=== PATIENT | female | born 1960 | race Caucasian/White ===

== ENCOUNTER 2019-01-02 12:59 | Emergency (ER) | payer OTHER ==
[2019-01-02 13:19] VITALS: RESP 18; TEMP 98.1
[2019-01-02] MEDS ORDERED: KETOROLAC 60 MG/2 ML VIAL IM STA (14:21)
--- NOTE | 2019-01-02 14:22 | ED ---
General Adult HPI - General Chief complaint: Back Pain/Injury Stated complaint: low back pain Time Seen by Provider: 01/02/19 13:54 Source: patient, RN notes reviewed, old records reviewed Mode of arrival: wheelchair Limitations: no limitations - History of Present Illness Initial comments: 58-year-old female patient with past history of right knee osteoarthritis, left shoulder osteoarthritis presents to ED with approximately 1 month of lumbar back pain. Patient denies any falls or trauma. Patient reports that her back pain has been increasing worse in the process 2 days, has had difficulty sleeping tonight. Patient reports that the pain is located in her midline lumbar spine. Patient denies any fever/chills, nausea vomiting diarrhea, loss of bowel or bladder control, new onset lower extremity weakness, paresthesia. Patient denies any other complaints today. Patient denies any chest pain shortness of breath abdominal pain. Patient did express to myself and to the nurse that she has had some fleeting thoughts of suicide due to life stressors caused by musculoskeletal issues. Patient denies any plan to hurt herself or hurt anybody else. Systemic: Pt denies fatigue, fever/chills, rash. Pt denies weakness, night sweats, weight loss. Neuro: Pt denies headache, visual disturbances, syncope or pre-syncope. HEENT: Pt denies ocular discharge or irritation, otalgia, rhinorrhea, pharyngitis or notable lymphadenopathy. Cardiopulmonary: Pt denies chest pain, SOB, heart palpitations, dyspnea on exertion. Abdominal/GI: Pt denies abdominal pain, n/v/d. : Pt denies dysuria, burning w/ urination, frequency/urgency. Denies new onset urinary or bowel incontinence. MSK: Pt denies loss of strength or function in extremities. Neuro: Pt denies new onset weakness, paresthesias. - Related Data Previous Rx's Medication Instructions Recorded Cyclobenzaprine [Flexeril] 10 mg PO TID #20 tab 01/02/19 predniSONE 20 mg PO DAILY 5 Days #5 tab 01/02/19 Allergies Allergy/AdvReac Type Severity Reaction Status Date / Time No Known Allergies Allergy Verified 01/02/19 14:40 Review of Systems ROS Statement: Those systems with pertinent positive or pertinent negative responses have been documented in the HPI. ROS Other: All systems not noted in ROS Statement are negative. Past Medical History Past Medical History: No Reported History History of Any Multi-Drug Resistant Organisms: None Reported Past Surgical History: No Surgical Hx Reported Past Psychological History: Anxiety Smoking Status: Never smoker Past Alcohol Use History: None Reported General Exam - General Exam Comments Initial Comments: Constitutional: NAD, AOX3, Pt has pleasant affect. HEENT: NC/AT, trachea midline, neck supple, no lymphadenopathy. Posterior pharynx non erythematous, without exudates. External ears appear normal, without discharge. Mucous membranes moist. Eyes PERRLA, EOM intact. There is no scleral icterus. No pallor noted. Cardiopulmonary: RRR, no murmurs, rubs or gallops, no JVD noted. Lungs CTAB in anterior and posterior marquez. No peripheral edema. Abdominal exam: Abdomen soft and non-distended. Abdomen non-tender to palpation in all 4 quadrants. Bowel sounds active in LLQ. No hepatosplenomegaly. No ecchymosis Neuro: CN II-XII grossly intact. No nuchal rigidity. MSK: No cervical, thoracic tenderness. Midline lumbar spinal tenderness. 5/5 strength psoas and quadriceps. Pt ambulatory, heelt to toe walking intact. No posterior calf tenderness bilaterally, homans sign negative bilaterally. Posterior tibialis and radial pulse +2 bilaterally. Sensation intact in upper and lower extremities. Full active ROM in upper and lower extremities, 5/5 stregnth. Limitations: no limitations Course Vital Signs 01/02/19 01/02/19 13:06 15:40 Temperature 98.1 F Pulse Rate 97 100 Respiratory 18 18 Rate Blood Pressure 181/86 147/82 O2 Sat by Pulse 98 98 Oximetry Medical Decision Making - Medical Decision Making 58-year-old female patient with past history of right knee osteoarthritis, left shoulder osteoarthritis presents to ED with approximately 1 month of lumbar back pain. Patient denies any falls or trauma. Patient reports that her back pain has been increasing worse in the process 2 days, has had difficulty sleeping tonight. Patient did express to myself and to the nurse that she has had some fleeting thoughts of suicide due to life stressors caused by musculoskeletal issues. Patient denies any plan to hurt herself or hurt anybody else. Pt VSS, afebrile. Physical exam displayed: No cervical, thoracic tenderness. Midline lumbar spinal tenderness. 5/5 strength psoas and quadriceps. Pt ambulatory, heelt to toe walking intact. CT lumbar spine displayed no evidence of acute fracture midline of lumbar spine. Mild multilevel degenerative disc disease. Findings were explained patient length. Patient describes the 5 days of steroids, muscle relaxers. Patient to follow- up with orthopedics outpatient. Patient to follow up with PCP in 1-2 days. Patient additionally evaluated by EPS nurse Worthington. Was cleared for discharge and outpatient follow-up. At discharge patient denied any thoughts of suicide, hurting herself or anybody else. case discussed in depth with Dr. Infante. Disposition Clinical Impression: Back pain Disposition: HOME SELF-CARE Condition: Serious Instructions (If sedation given, give patient instructions): Acute Low Back Pain (ED) Additional Instructions: Patient to adhere to previously discussed treatment plan and will take medication(s) as directed. Patient to follow up with PCP in 1-2 days. Patient to return to ED if symptoms do not improve. Prescriptions: Cyclobenzaprine [Flexeril] 10 mg PO TID #20 tab predniSONE 20 mg PO DAILY 5 Days #5 tab Is patient prescribed a controlled substance at d/c from ED?: No Referrals: Landy Castillo NPC [Primary Care Provider] - 1-2 days Malcolm Pepper MD [STAFF PHYSICIAN] - 1-2 days
--- NOTE | 2019-01-02 15:04 | CT ---
EXAMINATION TYPE: CT lumbar spine wo con DATE OF EXAM: 01/02/2019 2:57 PM COMPARISON: None HISTORY: Low back pain without injury CT DLP: 540 mGycm Automated exposure control for dose reduction was used. TECHNIQUE: Unenhanced CT of the lumbar spine was performed. Bone and soft tissue window settings are submitted as well as coronal and sagittal reconstructions. FINDINGS: There is no evidence of compression deformity or malalignment of the lumbar spine. No acute fracture is seen. Mild multilevel degenerative disc disease of the lumbar spine is seen as vasculiti s disease is present at L3-L4 and small marginal osteophytes are seen from L2 through S1. Multilevel facet arthropathy is also present. Evaluation of the spinal canal is limited. There is a too small to accurately characterize hepatic lesion with the attenuation of a simple cyst. Left renal cyst is also incidentally seen. L1-L2: Normal disc space height. No disc herniation protrusion or central stenosis. No facet joint arthropathy. No evidence for foraminal encroachment. L2-L3: There is a broad-based disc bulge resulting in mild bilateral neural foraminal narrowing. No g ross evidence of spinal canal stenosis. L3-L4: There is a broad-based disc bulge and facet arthropathy resulting in mild bilateral neural for aminal narrowing. No gross evidence of spinal canal stenosis. L4-L5: There is a right paracentral broad-based disc bulge and facet arthropathy. No gross evidence o f spinal canal stenosis. L5-S1: There is a small broad-based disc bulge with calcification posteriorly. No significant neural foraminal narrowing or spinal canal stenosis. IMPRESSION: 1. No evidence of acute fracture or malalignment of the lumbar spine. 2. Mild multilevel degenerative disc disease as described above.
[2019-01-02 15:41] VITALS: BP 147/82; PULSE 100
== END 2019-01-02 17:14 | disposition home or self-care (01) ==
LOC: EC 12:59
DX: M54.5 Low back pain (principal); M51.36 Other intervertebral disc degeneration, lumbar region; R45.851 Suicidal ideations; Z87.39 Personal history of other diseases of the musculoskeletal system and connective tissue
CPT/HCPCS: 99284; 96372; 72131; J1885

== ENCOUNTER 2024-12-12 07:00 | Emergency (ER) | payer MEDICARE ==
--- NOTE | 2024-12-12 08:00 | XR ---
EXAMINATION TYPE: XR knee complete RT DATE OF EXAM: 12/12/2024 7:53 AM COMPARISON: None CLINICAL INDICATION: Female, 64 years old with history of pain; PHH, pain TECHNIQUE: XR knee complete RT 3 views submitted. FINDINGS: Status post total knee arthroplasty changes with hardware in appropriate alignment and in tact. No evidence of fracture. IMPRESSION: Status post total knee arthroplasty changes with hardware intact and appropriate alignment. No fractu res identified. IMPRESSION: 1. No acute osseous pathology. 2. Knee arthroplasty changes appear intact. [facility], , 12/12/2024 7:58 AM
--- NOTE | 2024-12-12 08:02 | ED ---
Lower Extremity Injury HPI - General Chief Complaint: Extremity Injury, Lower Stated Complaint: R Knee Pain Time Seen by Provider: 12/12/24 07:11 Source: patient, family, RN notes reviewed Mode of arrival: wheelchair Limitations: physical limitation - History of Present Illness Initial Comments: 64-year-old female presents emergency department complaint of right knee pain. Patient states that she has had some on and off issues of her knee since her replacement 5 years ago. Patient is currently followed by Dr. Bell in which they have recommended revision. Patient states Wednesday she was shopping states that she twisted her knee and she has had increasing excruciating pain of her medial knee. She states she is barely able to put any weight on her knee. Patient states this is unusual for her where she states that she did primarily walk, up to a mile without issues but states that she is unable to perform his activities now. She denies any paresthesias. Patient denies any other associated symptoms. - Related Data Previous Rx's Medication Instructions Recorded Cyclobenzaprine [Flexeril] 10 mg PO TID #20 tab 01/02/19 predniSONE [Deltasone] 20 mg PO DAILY 5 Days #5 tab 01/02/19 traMADol HCl [Ultram] 50 mg PO Q6H PRN #12 tab 12/12/24 Allergies Allergy/AdvReac Type Severity Reaction Status Date / Time No Known Allergies Allergy Verified 01/02/19 14:40 Review of Systems ROS Statement: Those systems with pertinent positive or pertinent negative responses have been documented in the HPI. ROS Other: All systems not noted in ROS Statement are negative. Past Medical History Past Medical History: No Reported History History of Any Multi-Drug Resistant Organisms: None Reported Past Surgical History: No Surgical Hx Reported Past Psychological History: Anxiety Smoking Status: Never smoker Past Alcohol Use History: None Reported General Exam Limitations: physical limitation General appearance: alert, in no apparent distress Head exam: Present: atraumatic, normocephalic, normal inspection Respiratory exam: Present: normal lung sounds bilaterally. Absent: respiratory distress, wheezes, rales, rhonchi, stridor Cardiovascular Exam: Present: regular rate, normal rhythm, normal heart sounds. Absent: systolic murmur, diastolic murmur, rubs, gallop, clicks Extremities exam: Present: other (Right knee there is mild swelling noted there is increasing warmth without erythema pedal pulses weak bilaterally there is medial knee tenderness) Neurological exam: Present: alert Skin exam: Present: warm, dry, intact, normal color. Absent: rash Course Vital Signs 12/12/24 12/12/24 07:09 08:48 Temperature 98.4 F 98 F Pulse Rate 89 84 Respiratory 18 16 Rate Blood Pressure 131/70 145/80 O2 Sat by Pulse 99 97 Oximetry Medical Decision Making - Medical Decision Making Was pt. sent in by a medical professional or institution (, [facility], SOLUTION DESIGN ENGINEER, urgent care, hospital, or fpc...) When possible be specific @ -No Did you speak to anyone other than the patient for history (EMS, parent, family, police, friend...)? What history was obtained from this source @ -No Did you review nursing and triage notes (agree or disagree)? Why? @ -I reviewed and agree with nursing and triage notes Were old charts reviewed (outside hosp., previous admission, EMS record, old EKG, old radiological studies, urgent care reports/EKG's, fpc records)? Report findings @ -No old charts were reviewed Differential Diagnosis (chest pain, altered mental status, abdominal pain women, abdominal pain men, vaginal bleeding, weakness, fever, dyspnea, syncope, headache, dizziness, GI bleed, back pain, seizure, CVA, palpatations, mental health, musculoskeletal)? @ -periprostatic fracture, knee sprain, leg pain EKG interpreted by me (3pts min.). @ -None X-rays interpreted by me (1pt min.). @ -X-ray knee right no acute fracture or malalignment CT interpreted by me (1pt min.). @ -None done U/S interpreted by me (1pt. min.). @ -None done What testing was considered but not performed or refused? (CT, X-rays, U/S, labs)? Why? @ -None What meds were considered but not given or refused? Why? @ -None Did you discuss the management of the patient with other professionals (professionals i.e. [facility] F[facility], SOLUTION DESIGN ENGINEER, lab, RT, psych nurse, public health social worker, stores assistant, teacher, probation officer, case aide)? Give summary @ -Patient's orthopedic surgeon Dr. bell for follow-up Was smoking cessation discussed for >3mins.? @ -No Was critical care preformed (if so, how long)? @ -No Were there social determinants of health that impacted care today? How? (Homelessness, low income, unemployed, alcoholism, drug addiction, transportation, low edu. Level, literacy, decrease access to med. care, [facility], rehab)? @ -No Was there de-escalation of care discussed even if they declined (Discuss DNR or withdrawal of care, Hospice)? DNR status @ -No What co-morbidities impacted this encounter? (DM, HTN, Smoking, COPD, CAD, Cancer, CVA, ARF, Chemo, Hep., AIDS, mental health diagnosis, sleep apnea, morbid obesity)? @ -None Was patient admitted / discharged? Hospital course, mention meds given and route, prescriptions, significant lab abnormalities, going to OR and other pertinent info. @ -Discharge patient has follow-up on with Dr. bell patient provided analgesics return parameters santy. Undiagnosed new problem with uncertain prognosis? @ -No Drug Therapy requiring intensive monitoring for toxicity (Heparin, Nitro, Insulin, Cardizem)? @ -No Were any procedures done? @ -No Diagnosis/symptom? @ -Knee pain Acute, or Chronic, or Acute on Chronic? @ -Acute Uncomplicated (without systemic symptoms) or Complicated (systemic symptoms)? @ -Uncomplicated Side effects of treatment? @ -No Exacerbation, Progression, or Severe Exacerbation? @ -No Poses a threat to life or bodily function? How? (Chest pain, [place], AR, pneumonia, PE, COPD, DKA, ARF, appy, cholecystitis, CVA, Diverticulitis, Homicidal, Suicidal, threat to staff... and all critical care pts) @ -No Disposition Clinical Impression: Right knee pain Disposition: HOME SELF-CARE Condition: Stable Instructions (If sedation given, give patient instructions): Knee Pain (ED) Additional Instructions: Please contact Dr. Bell office for appointment on . Please return to the Emergency Department if symptoms worsen or any other concerns. Prescriptions: traMADol HCl [Ultram] 50 mg PO Q6H PRN #12 tab PRN Reason: Pain Is patient prescribed a controlled substance at d/c from ED?: Yes When asked, does pt state using other controlled substances?: No If prescribed controlled substance>3 days was MAPS reviewed?: Prescribed <3 Days If opioid is for acute pain is fill amount 7 days or less?: Yes If Rx opioid, was Start Talking consent form obtained?: Yes Referrals: Aly Bosch MD [Primary Care Provider] - 1-2 days Tolu Bell MD [Medical Doctor] - 1-2 days Time of Disposition: 08:48
[2024-12-12 08:49] VITALS: BP 145/80; PULSE 84; RESP 16; TEMP 98
[2024-12-12] MEDS: traMADol 50 MG STARTER PACK 3 TAB BTL PO STA (08:54)
== END 2024-12-12 09:00 | disposition home or self-care (01) ==
LOC: EC 07:00
DX: M25.562 Pain in left knee (principal); Z96.651 Presence of right artificial knee joint; X50.1XXA Overexertion from prolonged static or awkward postures, initial encounter
CPT/HCPCS: 99283

== ENCOUNTER 2024-12-17 13:19 | Inpatient (IN) | payer MEDICARE ==
[2024-12-17] MEDS ORDERED: IOPAMIDOL CONTRAST (ORAL USE) VIAL PO PRN (13:40)
[2024-12-17 14:02] LABS: Basophils # (A) 0.1 k/uL (0-0.2); Basophils % (A) 0 %; Eosinophils # (A) 0.1 k/uL (0-0.7); Eosinophils % (A) 1 %; HCT 40.6 % (34.0-46.0); HGB 13.3 gm/dL (11.4-16.0); Lymphocytes # (A) 1.3 k/uL (1.0-4.8); Lymphocytes % (A) 8 %; MCH 27.9 pg (25.0-35.0); MCHC 32.7 g/dL (31.0-37.0); MCV 85.5 fL (80.0-100.0); Mean Platelet Volume 7.5; Monocytes # (A) 0.7 k/uL (0-1.0); Monocytes % (A) 4 %; Neutrophils # (A) 14.2 k/uL (1.3-7.7); Neutrophils % (A) 86 %; Platelet Count 517 k/uL (150-450); RBC 4.75 m/uL (3.80-5.40); RDW 13.2 % (11.5-15.5); WBC 16.5 k/uL (3.8-10.6)
[2024-12-17] MEDS: SODIUM CHLORIDE 0.9% 1,000 ML IV STA (14:06)
[2024-12-17 14:14] LABS: ALT 13 U/L (4-34); AST 29 U/L (14-36); African American GFR (CKD) >90 (>60 ml/min/1.73 sqM); Albumin 3.9 g/dL (3.5-5.0); Alkaline Phosphatase 90 U/L (38-126); Anion Gap 10 mmol/L; Blood Urea Nitrogen 18 mg/dL (7-17); Calcium 9.7 mg/dL (8.4-10.2); Carbon Dioxide 26 mmol/L (22-30); Chloride 102 mmol/L (98-107); Glucose 116 mg/dL (74-99); Lipase 85 U/L (23-300); Non-African American GFR(CKD) >90 (>60 ml/min/1.73 sqM); Potassium 4.7 mmol/L (3.5-5.1); Sodium 138 mmol/L (137-145); Total Bilirubin 0.5 mg/dL (0.2-1.3); Total Protein 6.9 g/dL (6.3-8.2)
--- NOTE | 2024-12-17 16:19 | ED ---
Abdominal Pain HPI - General Chief Complaint: Abdominal Pain Stated Complaint: bowel blockage Time Seen by Provider: 12/17/24 13:23 Source: patient Mode of arrival: ambulatory Limitations: no limitations - History of Present Illness Initial Comments: 64-year-old female with past medical history of bowel obstruction who presents to the emergency department reporting abdominal distention, nausea and vomiting. Patient states her symptoms started last night. She started having abdominal distention pain that feels similar to her previous small bowel obstructions. This morning the patient began feeling nauseated and had an episode of vomiting. She does admit that she is passing gas. She typically follows with Dr. Conroy. Patient has had 4 previous bowel obstructions. States that twice she had an NG tube. She is never required any surgery for her obstructions. Today the patient went to [facility] and states that she had laboratory studies completed. She was discharged home and had worsening of her nausea and vomiting. She went back to [facility] and was requesting CT however physician there did not order it. She was discharged once again and patient decided to come to our hospital for further evaluation. She denies fevers. No black or bloody stools. No changes in her urination. No other alleviating, precipitating modifying factors - Related Data Home Medications Medication Instructions Recorded Confirmed Famotidine [Pepcid AC] 10 mg PO DAILY 12/17/24 12/17/24 L.crispa,Magdiel,Renetta,Rhamno/Bact 1 cap PO DAILY 12/17/24 12/17/24 [Culturelle Women's 4-in-1 Cap] Meloxicam [Mobic] 15 mg PO DAILY 12/17/24 12/17/24 Multivitamins, Thera [Multivitamin 1 tab PO DAILY 12/17/24 12/17/24 (formulary)] [place]-3/Dha/Epa/Fish Oil [Fish Oil 1 cap PO DAILY 12/17/24 12/17/24 1,000 mg Softgel] Zolpidem Tartrate [Ambien Cr] 6.25 mg PO HS 12/17/24 12/17/24 methocarbamoL [Robaxin] 500 mg PO QID PRN 12/17/24 12/17/24 Allergies Allergy/AdvReac Type Severity Reaction Status Date / Time Penicillins AdvReac Thrush Verified 12/17/24 15:32 Review of Systems ROS Statement: Those systems with pertinent positive or pertinent negative responses have been documented in the HPI. ROS Other: All systems not noted in ROS Statement are negative. Past Medical History Past Medical History: No Reported History Additional Past Medical History / Comment(s): Hx of bowel obstructions History of Any Multi-Drug Resistant Organisms: None Reported Past Surgical History: Orthopedic Surgery Past Psychological History: Anxiety Smoking Status: Never smoker Past Alcohol Use History: None Reported Past Drug Use History: None Reported General Exam Limitations: no limitations General appearance: alert, in no apparent distress Head exam: Present: atraumatic, normocephalic, normal inspection Eye exam: Present: normal appearance, PERRL, EOMI. Absent: scleral icterus, conjunctival injection, periorbital swelling ENT exam: Present: normal exam, mucous membranes moist Neck exam: Present: normal inspection. Absent: tenderness, meningismus, lymphadenopathy Respiratory exam: Present: normal lung sounds bilaterally. Absent: respiratory distress, wheezes, rales, rhonchi, stridor Cardiovascular Exam: Present: regular rate, normal rhythm, normal heart sounds. Absent: systolic murmur, diastolic murmur, rubs, gallop, clicks GI/Abdominal exam: Present: distended, tenderness (Generalized), normal bowel sounds. Absent: guarding, rebound, rigid Extremities exam: Present: normal inspection, full ROM, normal capillary refill. Absent: tenderness, pedal edema, joint swelling, calf tenderness Back exam: Present: normal inspection Neurological exam: Present: alert, oriented X3, CN II-XII intact Psychiatric exam: Present: normal affect, normal mood Skin exam: Present: warm, dry, intact, normal color. Absent: rash Course Vital Signs 12/17/24 12/17/24 13:21 15:00 Temperature 98.9 F Pulse Rate 99 93 Respiratory 18 16 Rate Blood Pressure 147/86 144/87 O2 Sat by Pulse 97 95 Oximetry Medical Decision Making - Medical Decision Making Was pt. sent in by a medical professional or institution ([facility], [employer], urgent care, hospital, or [place] health care facility...) When possible be specific @ -[No] Did you speak to anyone other than the patient for history (EMS, parent, family, police, friend...)? What history was obtained from this source @ -[No] Did you review nursing and triage notes (agree or disagree)? Why? @ -[I reviewed and agree with nursing and triage notes] Were old charts reviewed (outside hosp., previous admission, EMS record, old EKG, old radiological studies, urgent care reports/EKG's, [place] health care facility records)? Report findings @ -[No old charts were reviewed] Differential Diagnosis (chest pain, altered mental status, abdominal pain women, abdominal pain men, vaginal bleeding, weakness, fever, dyspnea, syncope, headache, dizziness, GI bleed, back pain, seizure, CVA, palpatations, mental health, musculoskeletal)? @ -[not applicable] EKG interpreted by me (3pts min.). @ -[As above] X-rays interpreted by me (1pt min.). @ -[None done] CT interpreted by me (1pt min.). @ -[None done] U/S interpreted by me (1pt. min.). @ -[None done] What testing was considered but not performed or refused? (CT, X-rays, U/S, labs)? Why? @ -[None] What meds were considered but not given or refused? Why? @ -[None] Did you discuss the management of the patient with other professionals (professionals i.e. ., PA, WOOL SUPPLIER, lab, RT, psych nurse, social security assessor, die maintenance, teacher, combatant diver officer, correctional case manager)? Give summary @ -[No] Was smoking cessation discussed for >3mins.? @ -[No] Was critical care preformed (if so, how long)? @ -[No] Were there social determinants of health that impacted care today? How? (Homelessness, low income, unemployed, alcoholism, drug addiction, transportation, low edu. Level, literacy, decrease access to med. care, group home, rehab)? @ -[No] Was there de-escalation of care discussed even if they declined (Discuss DNR or withdrawal of care, Hospice)? DNR status @ -[No] What co-morbidities impacted this encounter? (DM, HTN, Smoking, COPD, CAD, Cancer, CVA, ARF, Chemo, Hep., AIDS, mental health diagnosis, sleep apnea, morbid obesity)? @ -[None] Was patient admitted / discharged? Hospital course, mention meds given and route, prescriptions, significant lab abnormalities, going to OR and other pertinent info. @ -[hospital course] Undiagnosed new problem with uncertain prognosis? @ -[No] Drug Therapy requiring intensive monitoring for toxicity (Heparin, Nitro, Insulin, Cardizem)? @ -[No] Were any procedures done? @ -[No] Diagnosis/symptom? @ -[default] Acute, or Chronic, or Acute on Chronic? @ -[default] Uncomplicated (without systemic symptoms) or Complicated (systemic symptoms)? @ -[default] Side effects of treatment? @ -[No] Exacerbation, Progression, or Severe Exacerbation? @ -[No] Poses a threat to life or bodily function? How? (Chest pain, [place], [place], pneumonia, PE, COPD, DKA, ARF, appy, cholecystitis, CVA, Diverticulitis, Homicidal, Suicidal, threat to staff... and all critical care pts) @ -[No] - Lab Data Result diagrams: 12/17/24 13:50 12/17/24 13:50 Lab Results 12/17/24 12/17/24 12/17/24 Range/Units 13:50 13:50 13:50 WBC 16.5 H (3.8-10.6) k/uL RBC 4.75 (3.80-5.40) m/uL Hgb 13.3 (11.4-16.0) gm/dL Hct 40.6 (34.0-46.0) % MCV 85.5 (80.0-100.0) fL MCH 27.9 (25.0-35.0) pg MCHC 32.7 (31.0-37.0) g/dL RDW 13.2 (11.5-15.5) % Plt Count 517 H (150-450) k/uL MPV 7.5 Neutrophils % 86 % Lymphocytes % 8 % Monocytes % 4 % Eosinophils % 1 % Basophils % 0 % Neutrophils # 14.2 H (1.3-7.7) k/uL Lymphocytes # 1.3 (1.0-4.8) k/uL Monocytes # 0.7 (0-1.0) k/uL Eosinophils # 0.1 (0-0.7) k/uL Basophils # 0.1 (0-0.2) k/uL Sodium 138 (137-145) mmol/L Potassium 4.7 (3.5-5.1) mmol/L Chloride 102 (98-107) mmol/L Carbon Dioxide 26 (22-30) mmol/L Anion Gap 10 mmol/L BUN 18 H (7-17) mg/dL Creatinine 0.60 (0.52-1.04) mg/dL Est GFR (CKD-EPI)AfAm >90 (>60 ml/min/1.73 sqM) Est GFR (CKD-EPI)NonAf >90 (>60 ml/min/1.73 sqM) Glucose 116 H (74-99) mg/dL Plasma Lactic Acid Yang 1.0 (0.7-2.0) mmol/L Calcium 9.7 (8.4-10.2) mg/dL Total Bilirubin 0.5 (0.2-1.3) mg/dL AST 29 (14-36) U/L ALT 13 (4-34) U/L Alkaline Phosphatase 90 (38-126) U/L Total Protein 6.9 (6.3-8.2) g/dL Albumin 3.9 (3.5-5.0) g/dL Lipase 85 (23-300) U/L Disposition Clinical Impression: Small bowel obstruction, Nausea and vomiting, Abdominal pain Disposition: ADMITTED IP TO THIS [facility] Condition: Stable Is patient prescribed a controlled substance at d/c from ED?: No Referrals: Aly Bosch MD [Primary Care Provider] - 1-2 days Time of Disposition: 16:19 Decision to Admit Reason: Admit from EC Decision Date: 12/17/24 Decision Time: 16:19
[2024-12-17] MEDS ORDERED: NALOXONE 0.4 MG/ML 1 ML VIAL IV PRN (16:27)
[2024-12-17] MEDS ORDERED: ONDANSETRON 4 MG/2 ML VIAL IVP PRN (16:27)
--- NOTE | 2024-12-17 16:54 | CT ---
EXAMINATION TYPE: CT abdomen pelvis w con DATE OF EXAM: 12/17/2024 4:07 PM COMPARISON: CT 01/12/2019. CLINICAL INDICATION: Female, 64 years old with history of abdominal pain; Lower abdominal pain TECHNIQUE: Axial CT abdomen pelvis w con;Sagittal and coronal reformats were created on a separate w orkstation. Contrast used:100 mL of Isovue 300 with IV Contrast, (none if empty) Oral contrast used: with Oral Contrast (none if empty) CT DLP: 630.7 mGycm, Automated exposure control for dose reduction was used. FINDINGS: LOWER CHEST: Unremarkable ABDOMEN LIVER: Unremarkable GALLBLADDER AND BILE DUCTS: Unremarkable. PANCREAS: Unremarkable. SPLEEN: Unremarkable. ADRENAL GLANDS: Unremarkable. KIDNEYS AND URETERS: No evidence of hydronephrosis or renal calculus. The ureters are unremarkable. PELVIS BLADDER: No evidence for wall thickening or mass given limitations of exam. REPRODUCTIVE: Unremarkable. ABDOMEN & PELVIS STOMACH AND BOWEL: Scattered colonic diverticula. Dilated loops of small bowel throughout the abdomen measuring up to 33 mm. There is short segment measuring 17 mm of circumferential wall thickening wit h upstream dilation of the bowel series 201 image 61. Other areas extending towards the terminal ileu m of short segment wall thickening are also thought to be present series 201 image 62. Scattered colo mo diverticula present. Oral contrast extends into the esophagus and the thorax. PERITONEUM/RETROPERITONEUM: No evidence of pneumoperitoneum or free fluid. VASCULATURE: No evidence of aortic aneurysm. MUSCULOSKELETAL: No acute osseous abnormalities LYMPH NODES: No gross evidence for lymphadenopathy. SOFT TISSUE/ABDOMINAL WALL: Unremarkable IMPRESSION: 1. Evidence of at least partial bowel obstruction with at least 2 areas of wall thickening towards t he terminal ileum with upstream dilation of the small bowel extending to the into the jejunum. Correl ate for history of Crohn's disease and other inflammatory bowel disease. Consider nasogastric tube in sertion. 2. Colonic diverticulosis. [facility], , 12/17/2024 4:52 PM
[2024-12-17] MEDS: MORPHINE SULFATE 4 MG/ML SYRINGE IV PRN (17:05)
--- NOTE | 2024-12-17 18:13 | XR ---
EXAMINATION TYPE: XR chest 1V confirm line plcmt DATE OF EXAM: 12/17/2024 5:32 PM COMPARISON: None CLINICAL INDICATION: Female, 64 years old with history of Confirm NG tube placement; [facility] TECHNIQUE: XR chest 1V confirm line plcmt Frontal view of the chest. FINDINGS: Lungs/Pleura: There is no evidence of pleural effusion, focal consolidation, or pneumothorax. Pulmonary vascularity: Unremarkable. Heart/mediastinum: Cardiomediastinal silhouette is unremarkable. Musculoskeletal: No acute osseous pathology. Other findings: None Lines/Tubes: Nasogastric tube with side-port projecting over the distal esophagus. IMPRESSION: Endotracheal tube with side-port and distal tip in the distal esophagus . Advancement of 13 cm recomm ended for optimal placement. No acute cardiopulmonary disease/process. [facility], , 12/17/2024 6:10 PM
[2024-12-17] MEDS: SODIUM CHLORIDE 0.9% 1,000 ML IV SCH (18:21)
[2024-12-18 08:36] LABS: Basophils # (A) 0.03 X 10*3/uL (0.00-0.10); Basophils % (A) 0.5 %; Eosinophils # (A) 0.17 X 10*3/uL (0.04-0.35); Eosinophils % (A) 2.6 %; HCT 33.1 % (37.2-46.3); HGB 10.4 g/dL (12.0-15.0); Lymphocytes # (A) 1.24 X 10*3/uL (0.90-5.00); Lymphocytes % (A) 18.7 %; MCH 27.4 pg (27.0-32.0); MCHC 31.4 g/dL (32.0-37.0); MCV 87.3 FL (80.0-97.0); Mean Platelet Volume 9.9 FL (9.5-12.2); Monocytes # (A) 1.06 X 10*3/uL (0.20-1.00); NRBC Per 100 WBC 0 X 10*3/uL (0.00-0.01); Neutrophils # (A) 4.12 X 10*3/uL (1.80-7.70); Platelet Count 402 X 10*3/uL (140-440); RBC 3.79 X 10*6/uL (4.10-5.20); RDW 13.8 % (11.5-14.5); WBC 6.63 X 10*3/uL (4.50-10.00)
[2024-12-18 09:12] LABS: BUN/Creat Ratio 19.67 Ratio (12.00-20.00); Blood Urea Nitrogen 11.8 mg/dL (9.0-27.0); Calcium 7.9 mg/dL (8.7-10.3); Carbon Dioxide 22.1 mmol/L (21.6-31.8); Chloride 107 mmol/L (96-109); Glucose 86 mg/dL (70-110); Potassium 4.4 mmol/L (3.5-5.5); Sodium 138 mmol/L (135-145)
--- NOTE | 2024-12-18 11:20 | XR ---
EXAMINATION TYPE: XR chest 1V portable DATE OF EXAM: 12/18/2024 COMPARISON: NONE CLINICAL INDICATION: Female, 64 years old with history of verify NG tube placement.; , TECHNIQUE: XR chest 1V portable views of the chest. FINDINGS: The lungs are clear and there is no pneumothorax, pleural effusion, or focal pneumonia. Heart size normal and no overt failure. Osseous structures demonstrate hypertrophic and degenerative changes of the spine. NG tube is seen with the tip extending into the upper abdomen. Tip of the catheter is seen at the level of the GE junction and could be advanced. Incidental note of contrast within the bowel in the upper abdomen. IMPRESSION: 1. NG tube remains with the tip at the level of the distal esophagus\GE junction. [facility], , 12/18/2024 11:18 AM
--- NOTE | 2024-12-18 11:48 | P.GSCN ---
History of Present Illness Consult date: 12/18/24 History of present illness: CHIEF COMPLAINT: Abdominal pain HISTORY OF PRESENT ILLNESS: This is a 64-year-old female who presented to the hospital with complaints of abdominal pain that started on Wednesday. Patient reported that it felt similar to her prior bowel obstructions. She did have an episode of vomiting yesterday. She had NG tube placed. CT scan had reported partial bowel obstruction with at least 2 areas of wall thickening towards the terminal ileum with upstream dilation and small bowel extending into the jejunum. Correlate for history of Crohn's disease or inflammatory bowel disease. Colonic diverticulosis. Patient did have NG tube placed. There has been no output from the NG tube. She did have a small bowel movement today with flatus. She has had 4 other bowel obstructions. The last bowel obstruction was a year ago. They are usually managed conservatively with NG tube. She has not had any abdominal surgeries. Last colonoscopy was about 8 years ago. Patient denies any prior history of Crohn's disease. PAST MEDICAL HISTORY: Bowel obstructions, anxiety PAST SURGICAL HISTORY: Orthopedic surgery MEDICATIONS: See below ALLERGIES: See below SOCIAL HISTORY: No illicit drug use. REVIEW OF SYSTEMS: CONSTITUTIONAL: Denies fever or chills. HEENT: Denies blurred vision, vision changes, or eye pain. Denies hemoptysis CARDIOVASCULAR: Denies chest pain or pressure. RESPIRATORY: No shortness of breath. GASTROINTESTINAL: See HPI for pertinent findings HEMATOLOGIC: Denies bleeding disorders. GENITOURINARY: Denies any blood in urine or increased urinary frequency. SKIN: Denies pruitis. Denies rash. PHYSICAL EXAM: VITAL SIGNS: Reviewed GENERAL: Well-developed in no acute distress. HEENT: No sclera icterus. Extraocular movements grossly intact. Moist buccal mucosa. Head is atraumatic, normocephalic. No nasal drainage. ABDOMEN: Soft. Nondistended. Nontender. No rebound or guarding. NEUROLOGIC: Alert and oriented. Cranial nerves II through XII grossly intact. LABORATORY DATA: WBC is down from 16.5-6.63 Hgb 13. 3 down to 10.4 platelets 402 Sodium 138 potassium 4.4 creatinine 0.6 Lactic acid 1.0 LFTs normal lipase 85 IMAGING: CT scan abdomen pelvis reports evidence of at least partial bowel obstruction with at least 2 areas of wall thickening towards the terminal ileum and upstream dilation of the small bowel extending into the jejunum. Correlate for history of Crohn's disease and other inflammatory bowel disease. Colonic diverticulosis ASSESSMENT: 1. Partial small bowel obstruction. CT scan reporting partial bowel obstruction with at least 2 areas of wall thickening towards the terminal ileum and upstream dilation of the small bowel extending into the jejunum. Correlate for history of Crohn's disease and other inflammatory bowel disease. PLAN: -Clamp NG tube -Trial clear liquid diet -Plan to discontinue NG tube if patient tolerates clear liquids -Continue to monitor -Continue IV fluids Physician Contour Grinder note has been reviewed by physician. Signing provider agrees with the documented findings, assessment, and plan of care. Attestation Patient seen and examined at bedside. Presented with chief complaint of abdominal pain. On CT, patient with finding of partial bowel obstruction with at least 2 areas of wall thickening. She did have nasogastric tube placed but states that her abdominal distention is much improved and she is beginning to have some bowel function with flatus. She does have history of bowel obstruction in the past. Plan was initially to clamp NG tube and start clear liquid diet trial. Patient did try this and began to have more abdominal distention and requested that nasogastric tube be reconnected. She is now on low intermittent suction. We will further evaluate with repeat abdominal x-ray tomorrow and possibility of small bowel follow-through. Dariela Jensen, Past Medical History Past Medical History: No Reported History Additional Past Medical History / Comment(s): Hx of bowel obstructions History of Any Multi-Drug Resistant Organisms: None Reported Past Surgical History: Orthopedic Surgery Additional Past Surgical History / Comment(s): total knee 2020 Past Psychological History: Anxiety Smoking Status: Never smoker Past Alcohol Use History: None Reported Past Drug Use History: None Reported Medications and Allergies Home Medications Medication Instructions Recorded Confirmed Type Famotidine [Pepcid AC] 10 mg PO DAILY 12/17/24 12/17/24 History L.crispa,Magdiel,Renetta,Rhamno/Bact 1 cap PO DAILY 12/17/24 12/17/24 History [Culturelle Women's 4-in-1 Cap] Meloxicam [Mobic] 15 mg PO DAILY 12/17/24 12/17/24 History Multivitamins, Thera [Multivitamin 1 tab PO DAILY 12/17/24 12/17/24 History (formulary)] [place]-3/Dha/Epa/Fish Oil [Fish Oil 1 cap PO DAILY 12/17/24 12/17/24 History 1,000 mg Softgel] Zolpidem Tartrate [Ambien Cr] 6.25 mg PO HS 12/17/24 12/17/24 History methocarbamoL [Robaxin] 500 mg PO QID PRN 12/17/24 12/17/24 History Allergies Allergy/AdvReac Type Severity Reaction Status Date / Time Penicillins AdvReac Thrush Verified 12/17/24 18:10 Surgical - Exam Osteopathic Statement: *. No significant issues noted on an osteopathic structural exam other than those noted in the History and Physical/Consult. Vital Signs Temp Pulse Resp BP Pulse Ox 98.9 F 99 18 147/86 97 12/17/24 13:21 12/17/24 13:21 12/17/24 13:21 12/17/24 13:21 12/17/24 13:21 Results - Labs 12/18/24 03:22 12/18/24 03:22 Abnormal Lab Results - Last 24 Hours (Table) 12/17/24 12/17/24 12/18/24 Range/Units 13:50 13:50 03:22 WBC 16.5 H (3.8-10.6) k/uL RBC 3.79 L (4.10-5.20) X 10*6/uL Hgb 10.4 L (12.0-15.0) g/dL Hct 33.1 L (37.2-46.3) % MCHC 31.4 L (32.0-37.0) g/dL Plt Count 517 H (150-450) k/uL Neutrophils # 14.2 H (1.3-7.7) k/uL Monocytes # 1.06 H (0.20-1.00) X 10*3/uL BUN 18 H (7-17) mg/dL Glucose 116 H (74-99) mg/dL Calcium (8.7-10.3) mg/dL 12/18/24 Range/Units 03:22 WBC (3.8-10.6) k/uL RBC (4.10-5.20) X 10*6/uL Hgb (12.0-15.0) g/dL Hct (37.2-46.3) % MCHC (32.0-37.0) g/dL Plt Count (150-450) k/uL Neutrophils # (1.3-7.7) k/uL Monocytes # (0.20-1.00) X 10*3/uL BUN (7-17) mg/dL Glucose (74-99) mg/dL Calcium 7.9 L (8.7-10.3) mg/dL Diabetes panel 12/17/24 12/18/24 Range/Units 13:50 03:22 Sodium 138 138 (137-145) mmol/L Potassium 4.7 4.4 (3.5-5.1) mmol/L Chloride 102 107 (98-107) mmol/L Carbon Dioxide 26 22.1 (22-30) mmol/L BUN 18 H 11.8 (7-17) mg/dL Creatinine 0.60 0.6 (0.52-1.04) mg/dL Glucose 116 H 86 (74-99) mg/dL Calcium 9.7 7.9 L (8.4-10.2) mg/dL AST 29 (14-36) U/L ALT 13 (4-34) U/L Alkaline Phosphatase 90 (38-126) U/L Total Protein 6.9 (6.3-8.2) g/dL Albumin 3.9 (3.5-5.0) g/dL Calcium panel 12/17/24 12/18/24 Range/Units 13:50 03:22 Calcium 9.7 7.9 L (8.4-10.2) mg/dL Albumin 3.9 (3.5-5.0) g/dL Pituitary panel 12/17/24 12/18/24 Range/Units 13:50 03:22 Sodium 138 138 (137-145) mmol/L Potassium 4.7 4.4 (3.5-5.1) mmol/L Chloride 102 107 (98-107) mmol/L Carbon Dioxide 26 22.1 (22-30) mmol/L BUN 18 H 11.8 (7-17) mg/dL Creatinine 0.60 0.6 (0.52-1.04) mg/dL Glucose 116 H 86 (74-99) mg/dL Calcium 9.7 7.9 L (8.4-10.2) mg/dL Adrenal panel 01/19/25 01/20/25 Range/Units 13:50 03:22 Sodium 138 138 (137-145) mmol/L Potassium 4.7 4.4 (3.5-5.1) mmol/L Chloride 102 107 (98-107) mmol/L Carbon Dioxide 26 22.1 (22-30) mmol/L BUN 18 H 11.8 (7-17) mg/dL Creatinine 0.60 0.6 (0.52-1.04) mg/dL Glucose 116 H 86 (74-99) mg/dL Calcium 9.7 7.9 L (8.4-10.2) mg/dL Total Bilirubin 0.5 (0.2-1.3) mg/dL AST 29 (14-36) U/L ALT 13 (4-34) U/L Alkaline Phosphatase 90 (38-126) U/L Total Protein 6.9 (6.3-8.2) g/dL Albumin 3.9 (3.5-5.0) g/dL
--- NOTE | 2024-12-18 13:14 | P.HPIM ---
History of Present Illness This is a pleasant 64 years old female with past medical history of multiple bowel obstructions before. She presents today for [facility] yesterday because she was thinking of having another episode of partial bowel obstruction. Patient states over the last 9 years she got this is the fifth episode of bowel obstruction. She vomited little bit and had some abdominal pain. But she had 1 bowel movements that flight she thought it is partial bowel obstruction Currently she is looks comfortable denies significant abdominal pain. NG tube in place which is clamped and patient placed on clear liquid diet She denies chest pain or dyspnea. No other symptom. No headache weakness or numbness She denies smoking alcohol or illicit drugs Patient is afebrile, blood pressure stable Leukocytosis came back to reference range at 6.6. Hemoglobin 10.4 rest of BMP, LFT and lipase were unremarkable Chest x-ray showing no obvious consolidation but showing NG tube CT of the abdomen pelvis showing partial small bowel obstruction with 2 areas of wall thickening towards terminal ileum. Patient has history of Crohn's disease at bedside Review of Systems Review of systems CONSTITUTIONAL: No fever, no malaise, no fatigue. HEENT: No recent visual problems or hearing problems. Denied any sore throat. CARDIOVASCULAR: No orthopnea, PND, no palpitations, no syncope. PULMONARY: No shortness of breath, no cough, no hemoptysis. GASTROINTESTINAL: No diarrhea, no nausea, . Normoactive bowel sounds. NEUROLOGICAL: No headaches, no weakness, no numbness. HEMATOLOGICAL: Denies any bleeding or petechiae. GENITOURINARY: Denies any burning micturition, frequency, or urgency. MUSCULOSKELETAL/RHEUMATOLOGICAL: Denies any joint pain, swelling, or any muscle pain. ENDOCRINE: Denies any polyuria or polydipsia. Past Medical History Past Medical History: No Reported History Additional Past Medical History / Comment(s): Hx of bowel obstructions History of Any Multi-Drug Resistant Organisms: None Reported Past Surgical History: Orthopedic Surgery Additional Past Surgical History / Comment(s): total knee 2020 Past Psychological History: Anxiety Smoking Status: Never smoker Past Alcohol Use History: None Reported Past Drug Use History: None Reported Medications and Allergies Home Medications Medication Instructions Recorded Confirmed Type Famotidine [Pepcid AC] 10 mg PO DAILY 12/17/24 12/17/24 History L.crispa,Magdiel,Renetta,Rhamno/Bact 1 cap PO DAILY 12/17/24 12/17/24 History [Culturelle Women's 4-in-1 Cap] Meloxicam [Mobic] 15 mg PO DAILY 12/17/24 12/17/24 History Multivitamins, Thera [Multivitamin 1 tab PO DAILY 12/17/24 12/17/24 History (formulary)] Aurora-3/Dha/Epa/Fish Oil [Fish Oil 1 cap PO DAILY 12/17/24 12/17/24 History 1,000 mg Softgel] Zolpidem Tartrate [Ambien Cr] 6.25 mg PO HS 12/17/24 12/17/24 History methocarbamoL [Robaxin] 500 mg PO QID PRN 12/17/24 12/17/24 History Allergies Allergy/AdvReac Type Severity Reaction Status Date / Time Penicillins AdvReac Thrush Verified 12/17/24 18:10 Physical Exam Vitals: Vital Signs Temp Pulse Pulse Resp BP BP Pulse Ox 12/18/24 07:39 97.5 F L 92 18 122/71 96 12/18/24 02:00 97.7 F 89 17 127/72 93 L 12/17/24 19:46 98.9 F 92 16 125/76 96 12/17/24 17:07 92 16 133/83 95 12/17/24 15:00 93 16 144/87 95 12/17/24 13:21 98.9 F 99 18 147/86 97 Intake and Output 12/17/24 12/18/24 12/18/24 22:59 06:59 14:59 Other: Voiding Method Toilet # Voids 2 Weight 54.431 kg GENERAL: The patient is alert and oriented x3, not in any acute distress. Well developed, well nourished. HEENT: Pupils are round and equally reacting to light. EOMI. No scleral icterus. No conjunctival pallor. Normocephalic, atraumatic. No pharyngeal erythema. No thyromegaly. CARDIOVASCULAR: S1 and S2 present. No murmurs, rubs, or gallops. PULMONARY: Chest is clear to auscultation, no wheezing , no crackles. -ABDOMEN: Soft, nontender, nondistended, normoactive bowel sounds. No palpable organomegaly. NG tube in place, clamped MUSCULOSKELETAL: No joint swelling or deformity. EXTREMITIES: No cyanosis, clubbing, or pedal edema. NEUROLOGICAL: Gross neurological examination did not reveal any focal deficits. SKIN: No rashes. no petechiae. Results CBC & Chem 7: 12/18/24 03:22 12/18/24 03:22 Labs: Abnormal Lab Results - Last 24 Hours (Table) 12/17/24 12/17/24 12/18/24 Range/Units 13:50 13:50 03:22 WBC 16.5 H (3.8-10.6) k/uL RBC 3.79 L (4.10-5.20) X 10*6/uL Hgb 10.4 L (12.0-15.0) g/dL Hct 33.1 L (37.2-46.3) % MCHC 31.4 L (32.0-37.0) g/dL Plt Count 517 H (150-450) k/uL Neutrophils # 14.2 H (1.3-7.7) k/uL Monocytes # 1.06 H (0.20-1.00) X 10*3/uL BUN 18 H (7-17) mg/dL Glucose 116 H (74-99) mg/dL Calcium (8.7-10.3) mg/dL 12/18/24 Range/Units 03:22 WBC (3.8-10.6) k/uL RBC (4.10-5.20) X 10*6/uL Hgb (12.0-15.0) g/dL Hct (37.2-46.3) % MCHC (32.0-37.0) g/dL Plt Count (150-450) k/uL Neutrophils # (1.3-7.7) k/uL Monocytes # (0.20-1.00) X 10*3/uL BUN (7-17) mg/dL Glucose (74-99) mg/dL Calcium 7.9 L (8.7-10.3) mg/dL Thrombosis Risk Factor Assmnt - Choose All That Apply Any of the Below Risk Factors Present?: Yes Other Risk Factors: Yes Each Risk Factor Represents 2 Points: Age 61-74 years Other congenital or acquired thrombophilia - If yes, enter type in comment: Yes Thrombosis Risk Factor Assessment Total Risk Factor Score: 2 Thrombosis Risk Factor Assessment Level: Low Risk Assessment and Plan Assessment: Recurrent small bowel obstruction Crohn disease with no obvious exacerbation History of anxiety Anemia, mild Plan: Continue with bowel rest and advance diet per surgery team, Continue with IV fluid Pain management NG tube in place for bowel suction. Currently clamped Surgery team Consult GI team, already done from ER Labs and medication were reviewed.. Continue same treatment. Continue with symptomatic treatment. Resume home medication. Monitor labs and vitals. DVT and GI prophylaxis. Further recommendations as per clinical course of the patient DVT prophylaxis: Subcutaneous heparin GI Prophylaxis: Pepcid PT/OT: Pending Prognosis is guarded
--- NOTE | 2024-12-18 14:51 | P.CONS ---
History of Present Illness - Reason for Consult Consult date: 12/18/24 Abdominal pain, small bowel obstruction Requesting physician: Elenita Avalos - Chief Complaint Abdominal pain - History of Present Illness This a pleasant 64-year-old female with a history of for prior small bowel obstructions unclear etiology. No history of previous abdominal surgeries. She presented to [facility] with complaints of abdominal pain with nausea and vomiting. She was discharged and came here for further evaluation. She said abdominal pain started on Wednesday with couple episodes of emesis. She has seen Dr. Conroy for small bowel obstructions about a year ago in April. At that time recommendation was for a small bowel follow-through which was normal. Patient's last colonoscopy is about 9 years ago. She was recommended a year ago to have a colonoscopy but patient had declined. She presents back with similar symptoms of abdominal pain, nausea with vomiting and some mild bloating. CT abdomen pelvis shows partial small bowel obstruction with areas of thickening around the terminal ileum. Gastroenterology was consulted for small bowel obstruction. Patient denies any history of Crohn's disease. No recent upper endoscopy. Abdominal pain is improved, NG tube is in place. She had a small bowel movement yesterday and a larger bowel movement on Wednesday. NG tube in place, needs to be advanced per chest x-ray. No output. Review of Systems REVIEW OF SYSTEMS: CARDIOPULMONARY: No chest pain or shortness of breath. Gastrointestinal: Abdominal pain. Nausea with vomiting, now improved. No hematemesis, coffee-ground emesis. No rectal bleeding, or melena. GENITOURINARY: No dysuria or hematuria. MUSCULOSKELETAL: Reports normal range of motion. SKIN: No rashes. No jaundice. ENDOCRINE: No chills, fevers. No excessive weight gain or loss. No polydipsia or polyuria. PSYCHIATRIC: Unremarkable. NEUROLOGY: No change in mental status. Denies dizziness, headache. ENT: Vision unremarkable. CONSTITUTIONAL: No recent weight loss. No fever, chills, night sweats. Past Medical History Past Medical History: No Reported History Additional Past Medical History / Comment(s): Hx of bowel obstructions History of Any Multi-Drug Resistant Organisms: None Reported Past Surgical History: Orthopedic Surgery Additional Past Surgical History / Comment(s): total knee 2020 Past Psychological History: Anxiety Smoking Status: Never smoker Past Alcohol Use History: None Reported Past Drug Use History: None Reported Medications and Allergies Home Medications Medication Instructions Recorded Confirmed Type Famotidine [Pepcid AC] 10 mg PO DAILY 12/17/24 12/17/24 History L.crispa,Magdiel,Renetta,Rhamno/Bact 1 cap PO DAILY 12/17/24 12/17/24 History [Culturelle Women's 4-in-1 Cap] Meloxicam [Mobic] 15 mg PO DAILY 12/17/24 12/17/24 History Multivitamins, Thera [Multivitamin 1 tab PO DAILY 12/17/24 12/17/24 History (formulary)] Justice-3/Dha/Epa/Fish Oil [Fish Oil 1 cap PO DAILY 12/17/24 12/17/24 History 1,000 mg Softgel] Zolpidem Tartrate [Ambien Cr] 6.25 mg PO HS 12/17/24 12/17/24 History methocarbamoL [Robaxin] 500 mg PO QID PRN 12/17/24 12/17/24 History Allergies Allergy/AdvReac Type Severity Reaction Status Date / Time Penicillins AdvReac Thrush Verified 12/17/24 18:10 Physical Exam Vitals: Vital Signs Temp Pulse Pulse Resp BP BP Pulse Ox 12/18/24 07:39 97.5 F L 92 18 122/71 96 12/18/24 02:00 97.7 F 89 17 127/72 93 L 12/17/24 19:46 98.9 F 92 16 125/76 96 12/17/24 17:07 92 16 133/83 95 12/17/24 15:00 93 16 144/87 95 12/17/24 13:21 98.9 F 99 18 147/86 97 Intake and Output 12/17/24 12/18/24 12/18/24 22:59 06:59 14:59 Other: # Voids 2 Weight 54.431 kg General appearance: The patient is alert, oriented, appears in no acute distress. HET: Head is normocephalic and atraumatic. Conjunctiva pink. Sclera anicteric. NG tube in place. Neck: Supple without lymphadenopathy. Trachea midline. Heart: Regular. Lungs: Equal expansion, normal respiratory effort. Abdomen: Soft, nontender, nondistended. Skin: No rashes. No jaundice. Extremities: Normal skin color and turgor. No pedal edema. Neurological: No focal deficits. Alert and oriented x3. Results CBC & Chem 7: 12/18/24 03:22 12/18/24 03:22 Labs: Abnormal Lab Results - Last 24 Hours (Table) 12/17/24 12/17/24 12/18/24 Range/Units 13:50 13:50 03:22 WBC 16.5 H (3.8-10.6) k/uL RBC 3.79 L (4.10-5.20) X 10*6/uL Hgb 10.4 L (12.0-15.0) g/dL Hct 33.1 L (37.2-46.3) % MCHC 31.4 L (32.0-37.0) g/dL Plt Count 517 H (150-450) k/uL Neutrophils # 14.2 H (1.3-7.7) k/uL Monocytes # 1.06 H (0.20-1.00) X 10*3/uL BUN 18 H (7-17) mg/dL Glucose 116 H (74-99) mg/dL Calcium (8.7-10.3) mg/dL 12/18/24 Range/Units 03:22 WBC (3.8-10.6) k/uL RBC (4.10-5.20) X 10*6/uL Hgb (12.0-15.0) g/dL Hct (37.2-46.3) % MCHC (32.0-37.0) g/dL Plt Count (150-450) k/uL Neutrophils # (1.3-7.7) k/uL Monocytes # (0.20-1.00) X 10*3/uL BUN (7-17) mg/dL Glucose (74-99) mg/dL Calcium 7.9 L (8.7-10.3) mg/dL Comments: Chest x-ray reports endotracheal tube with sideport in distal tip in distal esophagus. Advancement of 13 cm recommended for optimal placement CT abdomen pelvis with contrast reports evidence of at least partial bowel obstruction with at least 2 areas of wall thickening towards the terminal ileum with upstream dilation of the small bowel extending into the jejunum. Correlate for history of Crohn's disease and other inflammatory bowel disease. Consider nasogastric tube insertion. Colonic diverticulosis. Assessment and Plan (1) Small bowel obstruction Narrative/Plan: 64-year-old female with recurrent small bowel obstructions with unclear etiology no history of previous abdominal surgeries with previous workup with small bowel follow-through that was normal. GI workup for possible Crohn's disease as CT abdomen pelvis reports 2 areas of wall thickening towards the terminal ileum with upstream dilation of the small bowel extending into the jejunum. Continue to treat symptomatically. NG tube in place, patient had bowel movement, no nausea or vomiting. Recommend outpatient colonoscopy with biopsies for evaluation of Crohn's disease. Current Visit: Yes Status: Acute Code(s): K56.609 - UNSP INTESTNL OBST, UNSP TO PARTIAL VERSUS COMPLETE OBST SNOMED Code(s): 515754157 (2) Abdominal pain Current Visit: Yes Status: Acute Code(s): R10.9 - UNSPECIFIED ABDOMINAL PAIN SNOMED Code(s): 09172111 Plan: 1. Continue symptomatic and supportive care 2. Agree with clear liquid diet, advance as tolerated 3. NG tube per recommendations from general surgery 4. Sed rate and CRP ordered 5. Recommend outpatient colonoscopy Thank you for this consultation, we will continue to follow. Dr. Shirley Conroy I agree with the dictator's note, documented as a scribe by Belkis Wyatt.
--- NOTE | 2024-12-18 17:17 | XR ---
EXAMINATION TYPE: XR chest 1V portable DATE OF EXAM: 12/18/2024 5:09 PM COMPARISON: Chest radiographs from 10/18/2025 CLINICAL INDICATION: Female, 64 years old with history of verify placement of NGT; [facility] TECHNIQUE: XR chest 1V portable Frontal view of the chest. FINDINGS: Lungs/Pleura: There is no evidence of pleural effusion, focal consolidation, or pneumothorax. Pulmonary vascularity: Unremarkable. Heart/mediastinum: Cardiomediastinal silhouette is unremarkable. Musculoskeletal: No acute osseous pathology. Other findings: None Lines/Tubes: Nasogastric tube with its distal tip and side-port projecting under the diaphragm. IMPRESSION: No acute cardiopulmonary disease/process. [facility], , 12/18/2024 5:14 PM
[2024-12-18] MEDS: BENZOCAINE SPRAY 1 EACH MM PRN (18:48)
--- NOTE | 2024-12-19 07:07 | XR ---
EXAMINATION TYPE: XR abdomen 2V DATE OF EXAM: 12/19/2024 COMPARISON: 12/17/2024 CLINICAL INDICATION: Female, 64 years old with history of sbo; TECHNIQUE: XR abdomen 2V views of the abdomen. FINDINGS: NG tube is seen in the left upper quadrant. Contrast within the colon with persistent dilated small b owel loops. Bases clear. Osseous structures are stable. IMPRESSION: 1. Persistent small bowel dilation. Partial obstruction in the differential diagnosis. [facility], , 12/19/2024 7:05 AM
--- NOTE | 2024-12-19 11:20 | P.PN ---
Subjective This is a pleasant 64 years old female with past medical history of multiple bowel obstructions before. She presents today for [facility] yesterday because she was thinking of having another episode of partial bowel obstruction. Patient states over the last 9 years she got this is the fifth episode of bowel obstruction. She vomited little bit and had some abdominal pain. But she had 1 bowel movements that flight she thought it is partial bowel obstruction Currently she is looks comfortable denies significant abdominal pain. NG tube i n place which is clamped and patient placed on clear liquid diet She denies chest pain or dyspnea. No other symptom. No headache weakness or numbness She denies smoking alcohol or illicit drugs Patient is afebrile, blood pressure stable Leukocytosis came back to reference range at 6.6. Hemoglobin 10.4 rest of BMP, LFT and lipase were unremarkable Chest x-ray showing no obvious consolidation but showing NG tube CT of the abdomen pelvis showing partial small bowel obstruction with 2 areas of wall thickening towards terminal ileum. Patient has history of Crohn's disease at bedside 12/19 Patient developed abdominal pain after she started on diet yesterday. She made n.p.o. and NG tube to suction again. Currently she is sitting in chair looks comfortable abdomen soft, mildly distended She has about 400 cc of discharge from her NG tube overnight ESR normal at 27 and CRP mildly elevated at 6.6. She is only getting normal saline now No antibiotic, no steroids Objective - Vital Signs Vital signs: Vital Signs Temp 97.9 F 12/19/24 07:30 Pulse 92 12/19/24 07:30 Resp 16 12/19/24 07:30 BP 150/81 12/19/24 07:30 Pulse Ox 99 12/19/24 07:30 FiO2 Intake & Output 12/18/24 12/19/24 12/19/24 18:59 06:59 18:59 Output Total 400 Balance -400 Output: Gastric Drainage 400 Other: Voiding Method Toilet Toilet # Voids 5 3 1 - Exam GENERAL: The patient is alert and oriented x3, not in any acute distress. Well developed, well nourished. HEENT: Pupils are round and equally reacting to light. EOMI. No scleral icterus. No conjunctival pallor. Normocephalic, atraumatic. No pharyngeal erythema. No thyromegaly. CARDIOVASCULAR: S1 and S2 present. No murmurs, rubs, or gallops. PULMONARY: Chest is clear to auscultation, no wheezing , no crackles. -ABDOMEN: Soft, nontender, n mildly distended, normoactive bowel sounds. No palpable organomegaly. NG tube in place MUSCULOSKELETAL: No joint swelling or deformity. EXTREMITIES: No cyanosis, clubbing, or pedal edema. NEUROLOGICAL: Gross neurological examination did not reveal any focal deficits. SKIN: No rashes. no petechiae. - Labs CBC & Chem 7: 12/18/24 03:22 12/18/24 03:22 Labs: Abnormal Lab Results - Last 24 Hours (Table) 12/18/24 12/19/24 Range/Units 03:22 04:04 C-Reactive Protein 4.20 H 6.60 H (0.00-0.80) mg/dL Assessment and Plan Assessment: Recurrent small bowel obstruction Crohn disease with no obvious exacerbation History of anxiety Anemia, mild Plan: Continue with bowel rest and advance diet per surgery team, Continue with IV fluid Pain management NG tube in place for bowel suction. Currently resumed Surgery team Consult GI team, already done from ER Labs and medication were reviewed.. Continue same treatment. Continue with symptomatic treatment. Resume home medication. Monitor labs and vitals. DVT and GI prophylaxis. Further recommendations as per clinical course of the patient DVT prophylaxis: Subcutaneous heparin GI Prophylaxis: Pepcid PT/OT: Pending Prognosis is guarded
--- NOTE | 2024-12-19 12:29 | P.PN ---
Subjective Progress Note Date: 12/19/24 This a pleasant 64-year-old female with a history of for prior small bowel obstructions unclear etiology. No history of previous abdominal surgeries. She presented to [facility] with complaints of abdominal pain with nausea and vomiting. She was discharged and came here for further evaluation. She said abdominal pain started on Wednesday with couple episodes of emesis. She has seen Dr. Conroy for small bowel obstructions about a year ago in April. At that time recommendation was for a small bowel follow-through which was normal. Patient's last colonoscopy is about 9 years ago. She was recommended a year ago to have a colonoscopy but patient had declined. She presents back with similar symptoms of abdominal pain, nausea with vomiting and some mild bloating. CT abdomen pelvis shows partial small bowel obstruction with areas of thickening around the terminal ileum. Gastroenterology was consulted for small bowel obstruction. Patient denies any history of Crohn's disease. No recent upper endoscopy. Abdominal pain is improved, NG tube is in place. She had a small bowel movement yesterday and a larger bowel movement on Wednesday. NG tube in place, needs to be advanced per chest x-ray. No output. 12/19/2024 Patient seen and examined today as a follow-up. States she has no abdominal pain, little bit of bloating feeling. She is passing gas but no bowel movement. NG tube was replaced and she has had 400 output. She is currently NPO. No nausea or vomiting. Repeat abdominal x-ray reports small bowel dilation, possible partial small bowel obstruction. Objective - Vital Signs Vital signs: Vital Signs Temp 98.8 F 12/19/24 03:41 Pulse 89 12/19/24 03:41 Resp 15 12/19/24 03:41 BP 138/75 12/19/24 03:41 Pulse Ox 96 12/19/24 03:41 FiO2 Intake & Output 12/18/24 12/19/24 12/19/24 18:59 06:59 18:59 Output Total 400 Balance -400 Output: Gastric Drainage 400 Other: Voiding Method Toilet Toilet # Voids 5 3 - Exam General appearance: The patient is alert, oriented, appears in no acute distress. HET: Head is normocephalic and atraumatic. Conjunctiva pink. Sclera anicteric. Neck: Supple without lymphadenopathy. Abdomen: Soft, nontender, nondistended. Extremities: Normal skin color and turgor. No pedal edema Skin: No rashes, no jaundice Neurological: No focal deficits. Alert and oriented. - Labs CBC & Chem 7: 12/18/24 03:22 12/18/24 03:22 Labs: Abnormal Lab Results - Last 24 Hours (Table) 12/18/24 12/18/24 12/18/24 Range/Units 03:22 03:22 03:22 RBC 3.79 L (4.10-5.20) X 10*6/uL Hgb 10.4 L (12.0-15.0) g/dL Hct 33.1 L (37.2-46.3) % MCHC 31.4 L (32.0-37.0) g/dL Monocytes # 1.06 H (0.20-1.00) X 10*3/uL Calcium 7.9 L (8.7-10.3) mg/dL C-Reactive Protein 4.20 H (0.00-0.80) mg/dL Assessment and Plan (1) Small bowel obstruction Narrative/Plan: 64-year-old female with recurrent small bowel obstructions with unclear etiology no history of previous abdominal surgeries with previous workup with small bowel follow-through that was normal. GI workup for possible Crohn's disease as CT abdomen pelvis reports 2 areas of wall thickening towards the terminal ileum with upstream dilation of the small bowel extending into the jejunum. Continue to treat symptomatically. NG tube in place, patient had bowel movement, no nausea or vomiting. Recommend outpatient colonoscopy with biopsies for evaluation of Crohn's disease. Current Visit: Yes Status: Acute Code(s): K56.609 - UNSP INTESTNL OBST, UNSP TO PARTIAL VERSUS COMPLETE OBST SNOMED Code(s): 285648895 (2) Abdominal pain Current Visit: Yes Status: Acute Code(s): R10.9 - UNSPECIFIED ABDOMINAL PAIN SNOMED Code(s): 98031757 Plan: 1. Continue symptomatic and supportive care 2. Diet per recommendations from general surgery 3. NG tube per recommendations from general surgery 4. Sed rate and CRP ordered and reviewed 5. Recommend outpatient colonoscopy Thank you for this consultation, we will continue to follow. Dr. Shirley Conroy I agree with the dictator's note, documented as a scribe by Belkis Wyatt.
--- NOTE | 2024-12-19 14:16 | P.PN ---
Subjective Progress Note Date: 12/19/24 SURGICAL PROGRESS NOTE CHIEF COMPLAINT: SBO HISTORY OF PRESENT ILLNESS: Patient had trial of clear liquid diet that she did not tolerate yesterday. NG tube was placed back to suction. Patient continues to pass gas but still feels distended and having abdominal discomfort. NG tube with 400 mL output. Abdominal x-ray from this morning reports persistent small bowel dilation. Partial obstruction in the differential diagnosis. Afebrile. Patient has no prior history of abdominal surgeries. PHYSICAL EXAM: VITAL SIGNS: Reviewed. GENERAL: Well-developed in no acute distress. ABDOMEN: Soft. Distended. Mid abdominal tenderness with palpation. No rebound or guarding. NEUROLOGIC: Alert and oriented. Cranial nerves II through XII grossly intact. ASSESSMENT: 1. Partial small bowel obstruction. CT scan reporting partial bowel obstruction with at least 2 areas of wall thickening towards the terminal ileum and upstream dilation of the small bowel extending into the jejunum. Correlate for history of Crohn's disease and other inflammatory bowel disease. PLAN: -Continue NG tube for decompression -Keep patient n.p.o. -Encouraged patient to increase activity level -Increase IV fluids -GI service recommending outpatient colonoscopy Physician [employer] note has been reviewed by physician. Signing provider agrees with the documented findings, assessment, and plan of care. Objective - Vital Signs Vital signs: Vital Signs Temp 97.9 F 12/19/24 07:30 Pulse 92 12/19/24 07:30 Resp 16 12/19/24 07:30 BP 150/81 12/19/24 07:30 Pulse Ox 99 12/19/24 07:30 FiO2 Intake & Output 12/18/24 12/19/24 12/19/24 18:59 06:59 18:59 Output Total 400 Balance -400 Output: Gastric Drainage 400 Other: Voiding Method Toilet Toilet # Voids 5 3 1 - Labs CBC & Chem 7: 12/18/24 03:22 12/18/24 03:22 Labs: Abnormal Lab Results - Last 24 Hours (Table) 12/18/24 12/19/24 Range/Units 03:22 04:04 C-Reactive Protein 4.20 H 6.60 H (0.00-0.80) mg/dL Assessment and Plan Assessment: recent bowel movement clamp nasogastric tube w/ clear liquid diet, if tolerating ok for nursing staff to remove ngt had a discussion at length as to why this bowel obstruction occurred given no history of previous surgery, may be secondary to transmural inflammation causing adhesive disease will need another colonscopy in the near future with random colonoscopy biopsies. Update: patient did tolerate, ok to remove ngt but patient reluctant to have ngt removed retry in am Time with Patient: Greater than 30
[2024-12-20 06:58] LABS: Basophils % (A) 0 %; Eosinophils # (A) 0.2 k/uL (0-0.7); Eosinophils % (A) 3 %; HCT 34.6 % (34.0-46.0); HGB 11.3 gm/dL (11.4-16.0); Lymphocytes # (A) 1.6 k/uL (1.0-4.8); Lymphocytes % (A) 18 %; MCH 28.2 pg (25.0-35.0); MCHC 32.7 g/dL (31.0-37.0); MCV 86.2 fL (80.0-100.0); Mean Platelet Volume 9.3; Monocytes # (A) 0.8 k/uL (0-1.0); Monocytes % (A) 9 %; Neutrophils # (A) 6.1 k/uL (1.3-7.7); Neutrophils % (A) 69 %; Platelet Count 474 k/uL (150-450); RBC 4.02 m/uL (3.80-5.40); RDW 13.1 % (11.5-15.5); WBC 8.9 k/uL (3.8-10.6)
[2024-12-20 09:04] LABS: BUN/Creat Ratio 9.25 Ratio (12.00-20.00); Blood Urea Nitrogen 3.7 mg/dL (9.0-27.0); Calcium 8.3 mg/dL (8.7-10.3); Carbon Dioxide 20.5 mmol/L (21.6-31.8); Chloride 106 mmol/L (96-109); Glucose 79 mg/dL (70-110); Potassium 3.7 mmol/L (3.5-5.5); Sodium 139 mmol/L (135-145)
--- NOTE | 2024-12-20 10:33 | P.PN ---
Subjective Progress Note Date: 12/20/24 SURGICAL PROGRESS NOTE CHIEF COMPLAINT: SBO HISTORY OF PRESENT ILLNESS: Patient is feeling better today. Abdominal distention and pain has improved. She had another bowel movement. NG tube with 500 mL output through the night. Afebrile. WBC 8.9 Hgb 11.3 Patient seen and examined with Dr. Waldrop PHYSICAL EXAM: VITAL SIGNS: Reviewed. GENERAL: Well-developed in no acute distress. ABDOMEN: Soft. Nondistended. Nontender NEUROLOGIC: Alert and oriented. Cranial nerves II through XII grossly intact. ASSESSMENT: 1. Partial small bowel obstruction. Resolving. CT scan reporting partial bowel obstruction with at least 2 areas of wall thickening towards the terminal ileum and upstream dilation of the small bowel extending into the jejunum. Correlate for history of Crohn's disease and other inflammatory bowel disease. PLAN: -Discontinue NG tube -Start clear liquid diet -Continue to monitor -Continue to ambulate -Follow-up with GI service for outpatient colonoscopy for evaluation of Crohn's Physician Senior Consulting Manager note has been reviewed by physician. Signing provider agrees with the documented findings, assessment, and plan of care. Objective - Vital Signs Vital signs: Vital Signs Temp 97.6 F 12/20/24 07:35 Pulse 98 12/20/24 07:35 Resp 16 12/20/24 07:35 BP 150/91 12/20/24 07:35 Pulse Ox 100 12/20/24 07:35 FiO2 Intake & Output 12/19/24 12/20/24 12/20/24 18:59 06:59 18:59 Intake Total 400 240 Output Total 500 Balance -100 240 Intake: Oral 400 240 Output: Gastric Drainage 500 Other: Voiding Method Toilet # Voids 3 6 # Bowel Movements 1 1 - Labs CBC & Chem 7: 12/20/24 03:03 12/20/24 03:03 Labs: Abnormal Lab Results - Last 24 Hours (Table) 12/20/24 12/20/24 Range/Units 03:03 03:03 Hgb 11.3 L (11.4-16.0) gm/dL Plt Count 474 H (150-450) k/uL Carbon Dioxide 20.5 L (21.6-31.8) mmol/L Anion Gap 12.50 H (4.00-12.00) mmol/L BUN 3.7 L (9.0-27.0) mg/dL Creatinine 0.4 L (0.6-1.5) mg/dL BUN/Creatinine Ratio 9.25 L (12.00-20.00) Ratio Calcium 8.3 L (8.7-10.3) mg/dL
--- NOTE | 2024-12-20 11:47 | P.PN ---
Subjective Progress Note Date: 12/20/24 Principal diagnosis: Small bowel obstruction This a pleasant 64-year-old female with a history of for prior small bowel obstructions unclear etiology. No history of previous abdominal surgeries. She presented to [facility] with complaints of abdominal pain with nausea and vomiting. She was discharged and came here for further evaluation. She said abdominal pain started on Wednesday with couple episodes of emesis. She has seen Dr. Conroy for small bowel obstructions about a year ago in April. At that time recommendation was for a small bowel follow-through which was normal. Patient's last colonoscopy is about 9 years ago. She was recommended a year ago to have a colonoscopy but patient had declined. She presents back with similar symptoms of abdominal pain, nausea with vomiting and some mild bloating. CT abdomen pelvis shows partial small bowel obstruction with areas of thickening around the terminal ileum. Gastroenterology was consulted for small bowel obstruction. Patient denies any history of Crohn's disease. No recent upper endoscopy. Abdominal pain is improved, NG tube is in place. She had a small bowel movement yesterday and a larger bowel movement on Wednesday. NG tube in place, needs to be advanced per chest x-ray. No output. 12/19/2024 Patient seen and examined today as a follow-up. States she has no abdominal pain, little bit of bloating feeling. She is passing gas but no bowel movement. NG tube was replaced and she has had 400 output. She is currently NPO. No nausea or vomiting. Repeat abdominal x-ray reports small bowel dilation, possible partial small bowel obstruction. 12/20/2024 Patient seen and examined today as a follow-up. NG tube was clamped throughout the night. She tolerated some clear liquid diet without any nausea or vomiting. She had a bowel movement yesterday evening and this morning. States abdominal distention improving. She is passing gas. Objective - Vital Signs Vital signs: Vital Signs Temp 97.6 F 12/20/24 07:35 Pulse 98 12/20/24 07:35 Resp 16 12/20/24 07:35 BP 150/91 12/20/24 07:35 Pulse Ox 100 12/20/24 07:35 FiO2 Intake & Output 12/19/24 12/20/24 12/20/24 18:59 06:59 18:59 Intake Total 400 240 Output Total 500 Balance -100 240 Intake: Oral 400 240 Output: Gastric Drainage 500 Other: Voiding Method Toilet # Voids 3 6 # Bowel Movements 1 1 - Exam General appearance: The patient is alert, oriented, appears in no acute distress. HET: Head is normocephalic and atraumatic. Conjunctiva pink. Sclera anicteric. Neck: Supple without lymphadenopathy. Abdomen: Soft, nontender, nondistended. Extremities: Normal skin color and turgor. No pedal edema Skin: No rashes, no jaundice Neurological: No focal deficits. Alert and oriented. - Labs CBC & Chem 7: 12/20/24 03:03 12/20/24 03:03 Labs: Abnormal Lab Results - Last 24 Hours (Table) 12/19/24 12/20/24 Range/Units 04:04 03:03 Hgb 11.3 L (11.4-16.0) gm/dL Plt Count 474 H (150-450) k/uL C-Reactive Protein 6.60 H (0.00-0.80) mg/dL Assessment and Plan (1) Small bowel obstruction Narrative/Plan: 64-year-old female with recurrent small bowel obstructions with unclear etiology no history of previous abdominal surgeries with previous workup with small bowel follow-through that was normal. GI workup for possible Crohn's disease as CT abdomen pelvis reports 2 areas of wall thickening towards the terminal ileum with upstream dilation of the small bowel extending into the jejunum. Continue to treat symptomatically. NG tube removed, clear liquids and advance diet as tolerated slowly. General surgery following closely. Recommend outpatient colonoscopy with biopsies for evaluation of Crohn's disease. Current Visit: Yes Status: Acute Code(s): K56.609 - UNSP INTESTNL OBST, UNSP TO PARTIAL VERSUS COMPLETE OBST SNOMED Code(s): 831370405 (2) Abdominal pain Current Visit: Yes Status: Acute Code(s): R10.9 - UNSPECIFIED ABDOMINAL PAIN SNOMED Code(s): 62089004 Plan: 1. Continue symptomatic and supportive care 2. Diet per recommendations from general surgery 3. NG tube discontinued 4. Sed rate and CRP ordered and reviewed 5. Recommend outpatient colonoscopy with gastroenterology Thank you for this consultation, we will continue to follow. Dr. Shirley Conroy I agree with the dictator's note, documented as a scribe by Belkis Wyatt.
--- NOTE | 2024-12-21 04:45 | P.PN ---
Subjective This is a pleasant 64 years old female with past medical history of multiple bowel obstructions before. She presents today for [facility] yesterday because she was thinking of having another episode of partial bowel obstruction. Patient states over the last 9 years she got this is the fifth episode of bowel obstruction. She vomited little bit and had some abdominal pain. But she had 1 bowel movements that flight she thought it is partial bowel obstruction Currently she is looks comfortable denies significant abdominal pain. NG tube i n place which is clamped and patient placed on clear liquid diet She denies chest pain or dyspnea. No other symptom. No headache weakness or numbness She denies smoking alcohol or illicit drugs Patient is afebrile, blood pressure stable Leukocytosis came back to reference range at 6.6. Hemoglobin 10.4 rest of BMP, LFT and lipase were unremarkable Chest x-ray showing no obvious consolidation but showing NG tube CT of the abdomen pelvis showing partial small bowel obstruction with 2 areas of wall thickening towards terminal ileum. Patient has history of Crohn's disease at bedside 12/19 Patient developed abdominal pain after she started on diet yesterday. She made n.p.o. and NG tube to suction again. Currently she is sitting in chair looks comfortable abdomen soft, mildly distended She has about 400 cc of discharge from her NG tube overnight ESR normal at 27 and CRP mildly elevated at 6.6. She is only getting normal saline now No antibiotic, no steroids 12/20 Today patient is improving NG tube is out and patient was placed on a clear liquid diet by surgery team with plan to advance it more tomorrow No abdominal pain or tenderness, patient has bowel movement is at bedside DC IV fluid Start Ensure upon patient request Objective - Vital Signs Vital signs: Vital Signs Temp 98.2 F 12/20/24 12:17 Pulse 97 12/20/24 12:20 Resp 16 12/20/24 12:20 BP 145/82 12/20/24 12:17 Pulse Ox 100 12/20/24 12:17 FiO2 Intake & Output 12/20/24 12/20/24 12/21/24 06:59 18:59 06:59 Intake Total 240 Balance 240 Intake: Oral 240 Other: Voiding Method Toilet Toilet # Voids 6 4 # Bowel Movements 1 1 - Exam GENERAL: The patient is alert and oriented x3, not in any acute distress. Well developed, well nourished. HEENT: Pupils are round and equally reacting to light. EOMI. No scleral icterus. No conjunctival pallor. Normocephalic, atraumatic. No pharyngeal erythema. No thyromegaly. CARDIOVASCULAR: S1 and S2 present. No murmurs, rubs, or gallops. PULMONARY: Chest is clear to auscultation, no wheezing , no crackles. -ABDOMEN: Soft, nontender, n mildly distended, normoactive bowel sounds. No pal pable organomegaly. NG tube in place MUSCULOSKELETAL: No joint swelling or deformity. EXTREMITIES: No cyanosis, clubbing, or pedal edema. NEUROLOGICAL: Gross neurological examination did not reveal any focal deficits. SKIN: No rashes. no petechiae. - Labs CBC & Chem 7: 12/20/24 03:03 12/20/24 03:03 Labs: Abnormal Lab Results - Last 24 Hours (Table) 12/20/24 12/20/24 Range/Units 03:03 03:03 Hgb 11.3 L (11.4-16.0) gm/dL Plt Count 474 H (150-450) k/uL Carbon Dioxide 20.5 L (21.6-31.8) mmol/L Anion Gap 12.50 H (4.00-12.00) mmol/L BUN 3.7 L (9.0-27.0) mg/dL Creatinine 0.4 L (0.6-1.5) mg/dL BUN/Creatinine Ratio 9.25 L (12.00-20.00) Ratio Calcium 8.3 L (8.7-10.3) mg/dL Assessment and Plan Assessment: Recurrent small bowel obstruction Crohn disease with no obvious exacerbation History of anxiety Anemia, mild Plan: Continue with bowel rest and advance diet per surgery team, currently on liquid diet Discontinue IV fluid Pain management NG tube was discontinued Surgery team Consult GI team, Labs and medication were reviewed.. Continue same treatment. Continue with symptomatic treatment. Resume home medication. Monitor labs and vitals. DVT and GI prophylaxis. Further recommendations as per clinical course of the patient DVT prophylaxis: Subcutaneous heparin GI Prophylaxis: Pepcid PT/OT: Pending Prognosis is guarded
[2024-12-21 08:20] VITALS: BP 150/82; PULSE 96; RESP 17; TEMP 97.7
--- NOTE | 2024-12-21 09:11 | P.PN ---
Subjective Progress Note Date: 12/21/24 Principal diagnosis: Small bowel obstruction This a pleasant 64-year-old female with a history of for prior small bowel obstructions unclear etiology. No history of previous abdominal surgeries. She presented to [facility] with complaints of abdominal pain with nausea and vomiting. She was discharged and came here for further evaluation. She said abdominal pain started on Wednesday with couple episodes of emesis. She has seen Dr. Conroy for small bowel obstructions about a year ago in April. At that time recommendation was for a small bowel follow-through which was normal. Patient's last colonoscopy is about 9 years ago. She was recommended a year ago to have a colonoscopy but patient had declined. She presents back with similar symptoms of abdominal pain, nausea with vomiting and some mild bloating. CT abdomen pelvis shows partial small bowel obstruction with areas of thickening around the terminal ileum. Gastroenterology was consulted for small bowel obstruction. Patient denies any history of Crohn's disease. No recent upper endoscopy. Abdominal pain is improved, NG tube is in place. She had a small bowel movement yesterday and a larger bowel movement on Wednesday. NG tube in place, needs to be advanced per chest x-ray. No output. 12/19/2024 Patient seen and examined today as a follow-up. States she has no abdominal pain, little bit of bloating feeling. She is passing gas but no bowel movement. NG tube was replaced and she has had 400 output. She is currently NPO. No nausea or vomiting. Repeat abdominal x-ray reports small bowel dilation, possible partial small bowel obstruction. 12/20/2024 Patient seen and examined today as a follow-up. NG tube was clamped throughout the night. She tolerated some clear liquid diet without any nausea or vomiting. She had a bowel movement yesterday evening and this morning. States abdominal distention improving. She is passing gas. 12/21/2024 Patient seen and examined today as a follow-up. She denies any abdominal pain, nausea or vomiting. Passing gas still. Tolerating clear liquid diet without any problems. Abdominal distention continues to improve. General surgery pl anning to advance diet for lunch and discharge if patient tolerates. Objective - Vital Signs Vital signs: Vital Signs Temp 97.7 F 12/21/24 07:20 Pulse 96 12/21/24 07:20 Resp 17 12/21/24 07:20 BP 150/82 12/21/24 07:20 Pulse Ox 98 12/21/24 07:20 FiO2 Intake & Output 12/20/24 12/21/24 12/21/24 18:59 06:59 18:59 Other: Voiding Method Toilet Toilet # Voids 4 2 # Bowel Movements 1 - Exam General appearance: The patient is alert, oriented, appears in no acute distress. HET: Head is normocephalic and atraumatic. Conjunctiva pink. Sclera anicteric. Neck: Supple without lymphadenopathy. Abdomen: Soft, nontender, nondistended. Extremities: Normal skin color and turgor. No pedal edema Skin: No rashes, no jaundice Neurological: No focal deficits. Alert and oriented. - Labs CBC & Chem 7: 12/20/24 03:03 12/20/24 03:03 Labs: Abnormal Lab Results - Last 24 Hours (Table) 12/20/24 Range/Units 03:03 Carbon Dioxide 20.5 L (21.6-31.8) mmol/L Anion Gap 12.50 H (4.00-12.00) mmol/L BUN 3.7 L (9.0-27.0) mg/dL Creatinine 0.4 L (0.6-1.5) mg/dL BUN/Creatinine Ratio 9.25 L (12.00-20.00) Ratio Calcium 8.3 L (8.7-10.3) mg/dL Assessment and Plan (1) Small bowel obstruction Narrative/Plan: 64-year-old female with recurrent small bowel obstructions with unclear etiology no history of previous abdominal surgeries with previous workup with small bowel follow-through that was normal. GI workup for possible Crohn's disease as CT abdomen pelvis reports 2 areas of wall thickening towards the terminal ileum with upstream dilation of the small bowel extending into the jejunum. Continue to treat symptomatically. NG tube removed, clear liquids and advance diet as tolerated slowly. General surgery following closely. Recommend outpatient colonoscopy with biopsies for evaluation of Crohn's disease. Appears small bowel obstruction has resolved. Patient tolerating clear liquid diet, having bowel movements and no abdominal pain nausea or vomiting. Again recommend outpatient colonoscopy in 4 to 6 weeks for Evaluation of possible Crohn's disease. Current Visit: Yes Status: Acute Code(s): K56.609 - UNSP INTESTNL OBST, UNSP TO PARTIAL VERSUS COMPLETE OBST SNOMED Code(s): 648097822 (2) Abdominal pain Current Visit: Yes Status: Acute Code(s): R10.9 - UNSPECIFIED ABDOMINAL PAIN SNOMED Code(s): 27537192 Plan: 1. Continue symptomatic and supportive care 2. Narayan diet as tolerated 3. Continue with recommendations from general surgery 4. Patient is cleared from gastroenterology. Recommend outpatient colonoscopy in 4 to 6 weeks Thank you for this consultation. Dr. Shirley Conroy I agree with the dictator's note, documented as a scribe by Belkis Wyatt.
--- NOTE | 2024-12-21 11:24 | P.PN ---
Subjective Progress Note Date: 12/21/24 SURGICAL PROGRESS NOTE CHIEF COMPLAINT: SBO HISTORY OF PRESENT ILLNESS: Patient is tolerating clear liquids. She is having flatus. She did have a bowel movement yesterday. Denies any nausea or vomiting . She wants advancement of diet and to be discharged today. PHYSICAL EXAM: VITAL SIGNS: Reviewed. GENERAL: Well-developed in no acute distress. ABDOMEN: Soft. Nondistended. Nontender NEUROLOGIC: Alert and oriented. Cranial nerves II through XII grossly intact. ASSESSMENT: 1. Partial small bowel obstruction. Resolved CT scan reporting partial bowel obstruction with at least 2 areas of wall thickening towards the terminal ileum and upstream dilation of the small bowel extending into the jejunum. Correlate for history of Crohn's disease and other inflammatory bowel disease. PLAN: -Advance diet to full liquids -Patient can be discharged later this afternoon if tolerating the full liquid diet. Patient educated to advance diet slowly at home -Follow-up with GI service for outpatient colonoscopy for evaluation of possible Crohn's Physician Manager Desktop note has been reviewed by physician. Signing provider agrees with the documented findings, assessment, and plan of care. Attestation Patient seen and examined at bedside. Presented with chief complaint of abdo tye pain and found to have small bowel obstruction. She has had multiple bowel movements and is tolerating clear liquid diet. Nasogastric tube removed. Patient was advanced to full liquid diet today and has been tolerating this. At this point, patient is surgically stable for discharge. Dariela Jensen DO Objective - Vital Signs Vital signs: Vital Signs Temp 97.7 F 12/21/24 07:20 Pulse 96 12/21/24 07:20 Resp 17 12/21/24 07:20 BP 150/82 12/21/24 07:20 Pulse Ox 98 12/21/24 07:20 FiO2 Intake & Output 12/20/24 12/21/24 12/21/24 18:59 06:59 18:59 Other: Voiding Method Toilet Toilet # Voids 4 2 # Bowel Movements 1 - Labs CBC & Chem 7: 12/20/24 03:03 12/20/24 03:03
--- NOTE | 2024-12-21 13:29 | P.DS ---
Providers Date of admission: 12/18/24 06:26 Expected date of discharge: 12/21/24 Attending physician: Omega Persaud MD Consults: 12/17/24 16:27 Consult Physician Urgent Consulting Provider: Leo Nice Consult Reason/Comments: nausea and vomiting, hx bowel obs Do you want consulting provider notified?: Yes Consult Physician Urgent Consulting Provider: Haven Conroy Consult Reason/Comments: abd pain, n/v, sbo Do you want consulting provider notified?: Yes Primary care physician: Aly Bosch Hospital Course: Discharge diagnoses; Recurrent small bowel obstruction Crohn disease with no obvious exacerbation History of anxiety Anemia, mild Hospital course; This is a pleasant 64 years old female with past medical history of multiple bowel obstructions before. She presents today for [facility] yesterday because she was thinking of having another episode of partial bowel obstruction. Patient states over the last 9 years she got this is the fifth episode of bowel obstruction. She vomited little bit and had some abdominal pain. But she had 1 bowel movements that flight she thought it is partial bowel obstruction Currently she is looks comfortable denies significant abdominal pain. NG tube in place which is clamped and patient placed on clear liquid diet She denies chest pain or dyspnea. No other symptom. No headache weakness or numbness She denies smoking alcohol or illicit drugs Patient is afebrile, blood pressure stable Leukocytosis came back to reference range at 6.6. Hemoglobin 10.4 rest of BMP, LFT and lipase were unremarkable Chest x-ray showing no obvious consolidation but showing NG tube CT of the abdomen pelvis showing partial small bowel obstruction with 2 areas of wall thickening towards terminal ileum. Patient has history of Crohn's disease at bedside 12/19 Patient developed abdominal pain after she started on diet yesterday. She made n.p.o. and NG tube to suction again. Currently she is sitting in chair looks comfortable abdomen soft, mildly distended She has about 400 cc of discharge from her NG tube overnight ESR normal at 27 and CRP mildly elevated at 6.6. She is only getting normal saline now No antibiotic, no steroids 12/20 Today patient is improving NG tube is out and patient was placed on a clear liquid diet by surgery team with plan to advance it more tomorrow No abdominal pain or tenderness, patient has bowel movement is at bedside DC IV fluid Start Ensure upon patient request 1/23. Patient seen and examined. Patient tolerating diet, currently on full liquid, being advanced to regular diet. Surgery cleared the patient for discharge PHYSICAL EXAMINATION: GENERAL: The patient is alert and oriented x3, not in any acute distress. Well developed, well nourished. HEENT: Pupils are round and equally reacting to light. EOMI. No scleral icterus. No conjunctival pallor. Normocephalic, atraumatic. No pharyngeal erythema. No thyromegaly. CARDIOVASCULAR: S1 and S2 present. No murmurs, rubs, or gallops. PULMONARY: Chest is clear to auscultation, no wheezing or crackles. ABDOMEN: Soft, nontender, nondistended, normoactive bowel sounds. No palpable organomegaly. MUSCULOSKELETAL: No joint swelling or deformity. EXTREMITIES: No cyanosis, clubbing, or pedal edema. NEUROLOGICAL: Gross neurological examination did not reveal any focal deficits. SKIN: No rashes. Dictation was produced using [employer] dictation software. please excuse any grammatical, word or spelling errors. Patient Condition at Discharge: Stable Plan - Discharge Summary New Discharge Prescriptions: No Action [place]-3/Dha/Epa/Fish Oil [Fish Oil 1,000 mg Softgel] 1 cap PO DAILY Famotidine [Pepcid AC] 10 mg PO DAILY methocarbamoL [Robaxin] 500 mg PO QID PRN PRN Reason: Muscle Pain L.Magdiel bedolla Jen,Rhamno/Bact [Culturelle Women's 4-in-1 Cap] 1 cap PO DAILY Multivitamins, Thera [Multivitamin (formulary)] 1 tab PO DAILY Zolpidem Tartrate [Ambien Cr] 6.25 mg PO HS Meloxicam [Mobic] 15 mg PO DAILY Discharge Medication List Famotidine [Pepcid AC] 10 mg PO DAILY 12/17/24 [History] L.Magdiel bedolla Jen,Rhamno/Bact [Culturelle Women's 4-in-1 Cap] 1 cap PO DAILY 12/17/24 [History] Meloxicam [Mobic] 15 mg PO DAILY 12/17/24 [History] Multivitamins, Thera [Multivitamin (formulary)] 1 tab PO DAILY 12/17/24 [History] [place]-3/Dha/Epa/Fish Oil [Fish Oil 1,000 mg Softgel] 1 cap PO DAILY 12/17/24 [History] Zolpidem Tartrate [Ambien Cr] 6.25 mg PO HS 12/17/24 [History] methocarbamoL [Robaxin] 500 mg PO QID PRN 12/17/24 [History] Follow up Appointment(s)/Referral(s): Haven Conroy MD [STAFF PHYSICIAN] - 3 Weeks ([place] office [phone] Need to schedule outpatient colonoscopy) Aly Bosch MD [Primary Care Provider] - 1-2 days
--- NOTE | 2024-12-23 20:16 | CDI ---
Documentation Clarification Form Date: 12/23/2024 08:00:44 PM From: Ruma Marin Phone: Admit Date: 12/18/2024 06:26:00 AM Patient Name: Julia Corrales Visit Number: [id number] Discharge Date: 12/21/2024 02:08:00 PM ATTENTION: The Clinical Documentation Specialists (CDI) and [facility] Coding Staff appreciate your assistance in clarifying documentation. Please respond to the clarification below the line at the bottom and electronically sign. The CDI & [facility] Coding staff will review the response and follow-up if needed. Please note: Queries are made part of the Legal Health Record. If you have any questions, please contact the author of this message via ITS. Doctor/Provider: Dariela Jensen RecurrentSBO ED Note and throughout the Progress Notes and patient is noted to have Crohns disease per Notes. Please clarify if there is a relationship between the diagnoses. History/Risk Factors: 64yo F, recurrentsmall bowel obstruction, Crohn disease,anxiety, anemia, mild Clinical Indicators: Over the last 9 years she got this is the fifth episode ofSBO. Shevomitedlittle bit and had someabdominal pain. But she had 1 BM that flight she thought it ispartial SBO. NG tube in place which is clamped and patientplacedon clear liquid diet. Shedenieschest painordyspnea. Treatment: NG tubeis out and patient wasplacedon a clear liquid diet by surgery team with plan to advance it more tomorrow. Noabdominal painor tenderness, patient has bowel movement. DC IV fluid. Start Ensure upon patient request. Please clarify the relationship, if any, which is clinically appropriate for this patient: [ ] Recurrent SBO is due to Crohns disease [ ] Recurrent SBO is not due to Crohns disease [ ] Other explanation of clinical findings (please specify) [ X] Unable to determine (no explanation for clinical findings) (Template Last Revised: January 2021) MTDD
== END 2024-12-21 14:08 | disposition home or self-care (01) | DRG 389 ==
LOC: EC 13:19 → 4SSUR 16:27 → OBSVTOIN 12-18 06:26
PROVIDERS: ADMIT Internal Medicine; ATTEND Internal Medicine
PROC: 0D9670Z Drainage of Stomach with Drainage Device, Via Natural or Artificial Opening (ICD-10-PCS; principal; 2024-12-18)
DX: K56.600 Partial intestinal obstruction, unspecified as to cause (principal); K50.90 Crohn's disease, unspecified, without complications; D64.9 Anemia, unspecified; D72.829 Elevated white blood cell count, unspecified; F41.9 Anxiety disorder, unspecified; Z79.1 Long term (current) use of non-steroidal anti-inflammatories (NSAID); Z79.899 Other long term (current) drug therapy; K57.30 Diverticulosis of large intestine without perforation or abscess without bleeding
CPT/HCPCS: 36415; 71045; 74019; 74177; 80048; 80053; 83605; 83690; 85025; 85652; 86140; 96374; 99285